=== PATIENT | female | born 1990 | race African-American/Black ===

== ENCOUNTER 2016-07-30 20:45 | Emergency (ER) | payer OTHER ==
[~2016-07-30] VITALS: Ht 152.4 cm; Wt 47.6 kg
[2016-07-30 20:46] VITALS: BP 117/85
== END 2016-07-30 21:13 | disposition home or self-care (01) ==
LOC: ER 20:45
DX: N89.8 Other specified noninflammatory disorders of vagina (principal)

== ENCOUNTER 2017-10-17 17:37 | Emergency (ER) | payer OTHER ==
[~2017-10-17] VITALS: Ht 152.4 cm; Wt 45.4 kg
[2017-10-17 17:47] VITALS: BP 122/84
[2017-10-17 18:02] LABS: URINE BILIRUBIN NEGATIVE (Negative); URINE BLOOD 2+ (Negative); URINE CLARITY CLEAR; URINE COLOR YELLOW; URINE GLUCOSE-RANDOM* NEGATIVE (Negative); URINE KETONES NEGATIVE (Negative); URINE LEUKOCYTES 2+ (Negative); URINE NITRITE NEGATIVE (Negative); URINE PROTEIN (DIPSTICK) NEGATIVE (Negative); URINE SPECIFIC GRAVITY 1.025 (1.005-1.035); URINE UROBILINOGEN 0.2 E.U./dl (0.2-1.0)
[2017-10-17 18:13] LABS: BACTERIA 1-9 Few /HPF (None Seen); CASTS None Seen /LPF (None Seen); CRYSTALS None Seen /LPF (None Seen); SQUAMOUS 0-3 Few /LPF (0-3); URINE RBC 0-2 Rare /HPF (0-2)
[2017-10-17] MEDS ORDERED: DIFLUCAN200 MG PO (18:38)
[2017-10-19 14:08] LABS: NEISSERIA GONORRHEA-PCR Negative (Negative)
== END 2017-10-17 18:58 | disposition home or self-care (01) ==
LOC: ER 17:37
PROVIDERS: Emergency Medicine; Nurse Practitioner Family
DX: B37.3 Candidiasis of vulva and vagina (principal)

== ENCOUNTER 2017-12-21 15:47 | Emergency (ER) | payer OTHER ==
[~2017-12-21] VITALS: Ht 152.4 cm; Wt 45.4 kg
--- NOTE | ~2017-12-21 | EKG ---
[address] [address] ELECTROCARDIOGRAM REPORT Name: SANTINOALLISON Room #: BABAR Heard#: [id number] Admission: 12/21/17 Attend Phys: Discharge: 12/21/17 Date of : 86 Report #: [id number] THIS REPORT FOR: //name// [facility] ED Test Date: 2017-12-21 Test Time: 17:23:11 Pat Name: ALLISON DE Department: Room: Gender: F Bobj Developer: jlamadou : 1990 Requested By: Celi Morales Order Number: [id number] MD: Jimmie Randle Measurements Intervals [place] Rate: 78 P: 50 IA: 144 QRS: 87 QRSD: 86 T: 49 QT: 361 QTc: 412 Interpretive Statements Sinus rhythm Normal tracing No previous ECG available for comparison Electronically Signed On 12-22-2017 7:46:48 CDT by Jimmie Randle [email or web address] <ELECTRONICALLY SIGNED> By: Jimmie Randle MD, [facility] 12/22/17 0746 1723 1723 Jimmie Randle MD, FAC /EPI
[~2017-12-21 15:47] MED LIST: DIFLUCAN200 MG PO
[2017-12-21 16:39] LABS: URINE BILIRUBIN NEGATIVE (Negative); URINE BLOOD 1+ (Negative); URINE CLARITY CLEAR; URINE COLOR YELLOW; URINE GLUCOSE-RANDOM* NEGATIVE (Negative); URINE KETONES NEGATIVE (Negative); URINE LEUKOCYTES-REFLEX NEGATIVE (Negative); URINE NITRITE-REFLEX NEGATIVE (Negative); URINE PROTEIN (DIPSTICK) NEGATIVE (Negative); URINE SPECIFIC GRAVITY 1.025 (1.005-1.035)
[2017-12-21 16:58] LABS: CASTS None Seen /LPF (None Seen); MUCUS >6 Heavy strn/LPF (None Seen); SQUAMOUS 4-10 Moderate /LPF (0-3)
[2017-12-21 16:59] LABS: BACTERIA-REFLEX None Seen /HPF (None Seen); CRYSTALS None Seen /LPF (None Seen); URINE RBC 0-2 Rare /HPF (0-2); URINE WBC-REFLEX 6-15 Few /HPF (0-5)
[2017-12-21] MEDS ORDERED: KEFLEX500 M1 PO (17:19)
[2017-12-21 17:46] VITALS: BP 112/62
== END 2017-12-21 17:47 | disposition home or self-care (01) ==
LOC: ER 15:47
PROVIDERS: Nurse Practitioner Family
DX: R07.89 Other chest pain (principal); F41.9 Anxiety disorder, unspecified; N39.0 Urinary tract infection, site not specified

== ENCOUNTER 2018-01-02 12:50 | Emergency (ER) | payer OTHER ==
[~2018-01-02] VITALS: Ht 152.4 cm; Wt 45.4 kg
[~2018-01-02 12:50] MED LIST changes: +KEFLEX500 M1 PO
[2018-01-02 13:19] LABS: URINE BILIRUBIN NEGATIVE (Negative); URINE BLOOD 1+ (Negative); URINE CLARITY CLEAR; URINE COLOR YELLOW; URINE GLUCOSE-RANDOM* NEGATIVE (Negative); URINE KETONES NEGATIVE (Negative); URINE LEUKOCYTES-REFLEX NEGATIVE (Negative); URINE NITRITE-REFLEX NEGATIVE (Negative); URINE PROTEIN (DIPSTICK) NEGATIVE (Negative); URINE UROBILINOGEN 0.2 E.U./dl (0.2-1.0)
[2018-01-02 13:43] LABS: CASTS None Seen /LPF (None Seen); CRYSTALS None Seen /LPF (None Seen); SQUAMOUS 0-3 Few /LPF (0-3); URINE RBC 0-2 Rare /HPF (0-2)
[2018-01-02 13:44] LABS: BACTERIA-REFLEX 1-9 Few /HPF (None Seen); URINE WBC-REFLEX 0-5 Rare /HPF (0-5)
[2018-01-02 15:10] LABS: ABSOLUTE NEUTROPHILS 4.6 thou/uL (1.4-8.2); BASOPHILS 0.7 % (0.0-2.0); HEMATOCRIT 46.4 % (37.0-47.0); HEMOGLOBIN 15.6 gm/dL (12.0-15.0); MCH 30.4 pg (26.0-34.0); MCHC 33.6 g/dL (28.0-37.0); MCV 90.3 fL (80.0-100.0); MONOCYTES 5.5 % (1.0-8.0); PLATELET COUNT 244 thou/uL (150-400); POLYS 70.8 % (36.0-66.0); RBC 5.13 mil/uL (4.20-5.00); RDW 12.5 % (10.5-14.5); WBC 6.5 thou/uL (4.0-11.0)
[2018-01-02 15:17] LABS: CALCIUM 9.2 mg/dL (8.5-10.1)
[2018-01-02] MEDS ORDERED: ZANTAC 150MG T150 MG PO (15:53)
[2018-01-02] MEDS ORDERED: BENTYL 20 MG TA20 M1 PO (15:53)
[2018-01-02 16:09] VITALS: BP 119/72
== END 2018-01-02 16:09 | disposition home or self-care (01) ==
LOC: ER 12:50
PROVIDERS: Nurse Practitioner Family
DX: R10.9 Unspecified abdominal pain (principal); R30.0 Dysuria; N89.8 Other specified noninflammatory disorders of vagina